=== PATIENT | female | born 1995 | race Caucasian/White ===

== ENCOUNTER 2017-02-25 15:49 | Inpatient (IN) | payer MEDICAID ==
[~2017-02-25] VITALS: Ht 162.6 cm; Wt 72.7 kg
[2017-02-25 16:05] VITALS: BP 119/73; PULSE 90; RESP 18
--- NOTE | 2017-02-25 16:15 | RADRPT ---
PROCEDURE: US OB. CLINICAL INDICATION: Size and dates , leaking fluid TECHNIQUE: Multiple sonographic images of the pelvis and gravid uterus were obtained. The images were reviewed on a PACS workstation. COMPARISON: No prior studies are available for comparison. FINDINGS: There is a single viable intrauterine gestation. Cardiac activity is present with 146 beats per min ashtyn. There is a vertex presentation. The placenta is anterior. There is no evidence for an abruption or placenta previa. Measurements were made in order to determine age. The results are as follows: BPD =9.2 cm HC =31.7 cm AC =34 cm FL =7.4 cm Estimated gestational age of approximately 37 weeks and 1 day based on ultrasound measurements. Clinical age: 35 weeks and 3 days. The estimated date of delivery is 03/17/17, based on ultrasound measurements. The EFW = 3248 g, 94.9%, based on LMP age. RPTAT: AA IMPRESSION: Single viable intrauterine gestation of approximately 37 weeks and 1 day based on ultrasound measur ements. .Tim Jimenez MD, MD Date Time Electronically viewed and signed by .Tim Jimenez MD, on 02/25/2017 16:15 .S/
--- NOTE | 2017-02-25 16:21 | RADRPT ---
PROCEDURE: US OB biophysical profile. CLINICAL INDICATION: decreased movements, leaking fluid TECHNIQUE: Multiple sonographic images of the pelvis were obtained. The images were reviewed on a PACS workstation. COMPARISON: No prior studies are available for comparison. FINDINGS: There is a single viable intrauterine gestation. Cardiac activity is present with 146 beats per ale te. There is a vertex presentation. The placenta is anterior. There is no evidence for an abruption or placenta previa. The ADARSH measures 5.9 cm. Biophysical profile: movement 2/2 tone 2/2. breathing 2/2 ADARSH 2/2 Total 11/30 RPTAT: AA . IMPRESSION: Normal biophysical profile. Mild oligohydramnios. . .Tim Jimenez MD, Date Time Electronically viewed and signed by .Tim Jimenez MD, MD on 02/25/2017 16:20 .S/
[2017-02-25] MEDS ORDERED: OXYTOCIN 30 UNITS/LR 500 ML IV SCH ×5 (18:00→23:00)
[2017-02-25] MEDS ORDERED: OXYTOCIN 30 UNITS/LR 500 ML IV PRN (18:00)
[2017-02-25] MEDS ORDERED: HYDROCODONE/APAP (5/325) TAB PO PRN (18:00)
[2017-02-25] MEDS ORDERED: OXYCODONE/ASPIRIN (4.88/325) TAB PO PRN (18:00)
[2017-02-25] MEDS ORDERED: AMPICILLIN 2 GM/NS (PMX) 100 ML IV ONE (18:00)
[2017-02-25] MEDS ORDERED: MISOPROSTOL 200 MCG TAB PR PRN (18:00)
[2017-02-25] MEDS ORDERED: OXYCODONE/ACETAMINOPHEN (5/325) TAB PO PRN (18:00)
[2017-02-25] MEDS ORDERED: METHYLERGONOVINE 0.2 MG INJ IM PRN (18:00)
[2017-02-25] MEDS ORDERED: IBUPROFEN 600 MG TAB PO PRN (18:00)
[2017-02-25] MEDS ORDERED: CARBOPROST 250 MCG INJ IM PRN (18:00)
[2017-02-25] MEDS ORDERED: LIDOCAINE 1% (MPF) 30 ML INJ INJ PRN (18:00)
[2017-02-25] MEDS ORDERED: AMPICILLIN 2 GM/NS (PMX) 100 ML ONE (18:06)
[2017-02-25] MEDS: LACTATED RINGER'S 1,000 ML IV SCH ×2 (18:46→23:10)
--- NOTE | 2017-02-25 18:49 | HP ---
Date/Time of Note Date/Time of Note DATE: 02/25/17 TIME: 18:48 OB - History Hx of Present Free Text/Dictation 35+wks PPROM : 2 Para: 0 Care: Good Care Ultrasounds: Normal mid trimester US Obstetrical Complications: None Medical Complications: None Past Family/Social History * Past Medical, Surgical, Family and Obstetric Histories reviewed from chart. OB Admission Exam Vital Signs Vital Signs Vital Signs Date Time Temp Pulse Resp B/P Pulse Ox O2 Delivery O2 Flow Rate FiO2 02/25/17 16:05 98.5 90 18 119/73 98 Room Air Physical Exam Abdomen: WNL Extremities: Normal Effacement: 50% Station: -1 Membranes: Ruptured Amniotic Fluid: Clear Heart Rate: 140's Accelerations: Accelerations Present Varibility: Moderate OB Assessment/Plan Reason for admission: observation Plan: Expectant Management Other plan: Antibiotics Steroids Close Observation LESLYE PENA M.D. Feb 25, 2017 18:49
[2017-02-25] MEDS ORDERED: BETAMET NA PHOS/AC(6 MG/ML) 5ML INJ IM SCH (19:00)
[2017-02-25] MEDS ORDERED: PREN1COM10 PO (19:04)
--- NOTE | 2017-02-25 19:54 | TRIAGE ---
OB Triage Datetime Report Generated by CPN: 02/25/2017 19:53 Datetime: 02/25/2017 19:50 Labor Evaluation Frequency: 5-10 Monitor Mode: External Duration (sec)2399: 40-70 Quality: Mild Pattern: Normal: <= 5 Contractions in 10 Minutes Resting Tone [place]: Relaxed Heart Rate FHR Baseline Rate: 130 Monitor Mode: External US FHR Baseline Changes: No Baseline Change Variability: Moderate 6-25 bpm Accelerations: 15X15 Decelerations: None Category: Category I Datetime: 02/25/2017 19:49 Membrane Status: Ruptured Datetime: 02/25/2017 16:27 Vaginal Exam Dilatation (cms): 1.0 Effacement (%): 50 Station: -3 Exam By: emily rivera rn Cervix, Consistency: Moderate Cervix, Position: Posterior Presentation 'A': Cephalic Datetime: 02/25/2017 15:58 Assessment Type: Admission Assessment Maternal Assessment Level of Consciousness: Fully Conscious DTR's/Clonus: DTRs 2+; No Clonus Headache: Denies Blurred Vision: No Respiratory Effort: Unlabored; Regular Rhythm; Equal Expansion Breath Sounds, Left: Clear and Equal Breath Sounds, Right: Clear and Equal Nausea/Vomiting: Denies RUQ Epigastric Pain: Denies Facial Edema: None Fall Risk Assessment History of Falling: (0) No Secondary Diagnosis: (0) No Ambulatory Aid: (0) Bedrest/Nurse Assist IV Therapy: (0) No Gait: (0) Normal/Bedrest/Immobile Mental Status: (0) Oriented to Own Ability Fall Score: 0 Fall Risk Score Definition: No Risk: No action required Datetime: 02/25/2017 15:56 Time of Arrival: 02/25/2017 16:40 EGA: 35.3 Arrived By: Ambulance Arrived From: Other Hospital Chief Complaint: SROM 1500 Movement: Present Contractions: Irregular Rupture of Membranes: Ruptured Vaginal Bleeding: None Vaginal Discharge: Denies Recent Sexual Intercouse: Denies Abdominal Trauma: Not Applicable Patient Complaints: Contractions; Other Time Provider Notified: 02/25/2017 17:30 Provider Notified: md dotty Initial Plan: rom plus , efw, bpp, christiano
[2017-02-25] MEDS: AMPICILLIN 1 GM/NS (PMX) 50 ML IV SCH (22:44)
[2017-02-25] MEDS ORDERED: BUTORPHANOL 2 MG INJ IV PRN ×2 (23:00)
[2017-02-26] MEDS: AMPICILLIN 1 GM/NS (PMX) 50 ML IV SCH ×2 (01:57→05:47)
[2017-02-26] MEDS ORDERED: FENTAnyl 2MCG/ML-ROPIV 0.2% 100 ML ONE (02:17)
[2017-02-26 03:10] VITALS: Ht 162.6 cm; Wt 72.7 kg
[2017-02-26] MEDS: LACTATED RINGER'S 1,000 ML IV* SCH ×2 (06:54→14:54)
[2017-02-26] MEDS ORDERED: OXYTOCIN 30 UNITS/LR 500 ML IV SCH (06:54)
[2017-02-26] MEDS ORDERED: MISOPROSTOL 200 MCG TAB PR PRN (07:00)
[2017-02-26] MEDS ORDERED: CARBOPROST 250 MCG INJ IM PRN (07:00)
[2017-02-26] MEDS ORDERED: HYDROCODONE/APAP (5/325) TAB PO PRN (07:00)
[2017-02-26] MEDS ORDERED: OXYTOCIN 30 UNITS/LR 500 ML IV PRN (07:00)
[2017-02-26] MEDS ORDERED: METHYLERGONOVINE 0.2 MG INJ IM PRN (07:00)
[2017-02-26] MEDS ORDERED: LANOLIN 7 GM TUBE TOP PRN (07:00)
[2017-02-26] MEDS ORDERED: BENZOCAINE 20% 56 ML SPRAY TOP PRN (07:00)
--- NOTE | 2017-02-26 07:08 | LDN ---
Date/Time of Note Date/Time of Note DATE: 02/26/17 TIME: 06:58 Delivery Summary of a viable baby weighing 3185 grams or 7#, 19" long, and with Apgars of 9/ 9. Weeks of Gestation 35w 4d Placenta Delivered: Manually Meconium: none Episiotomy: No Perineal laceration: 0 Laceration repair: First degree right labial laceration repaired with 2-0 chromic, Anesthesia type: Epidural Estimated blood loss: 400 Sponge & Needle done & correct: Yes All needle counts correct: Yes Any foreign bodies felt in the: No (vagina) Problems: Delivery Information Sex Sex: male Apgars 1 Minute: 9 5 Minute: 9 Suctioning Nose & mouth suctioned at isacc: Yes Delee suction performed: No Umbilical Cord Umbilical cord with: 3 Vessels Cord presentations: no nuchal cord Cord Blood was obtained: Yes Mother & Baby Disposition Disposition Mom & Baby to Maternity; Good: Yes Baby to NICU: No MARS MARTINEZ MD Feb 26, 2017 07:08
[2017-02-26 10:00] VITALS: BP 114/67; PULSE 108; RESP 18
[2017-02-26] MEDS: IBUPROFEN 600 MG TAB PO SCH ×2 (11:48→17:31)
[2017-02-26 12:30] VITALS: BP 109/62; PULSE 108; RESP 17
[2017-02-26 16:00] VITALS: BP 100/59; PULSE 102; RESP 18
[2017-02-26 19:35] VITALS: BP 105/64; PULSE 96; RESP 8
[2017-02-27] VITALS: BP_SYST 103; BP_SYST 99; BP_DIAS 55; BP_DIAS 75; PULSE 78; PULSE 96; RESP 16; RESP 18
[2017-02-27] MEDS: IBUPROFEN 600 MG TAB PO SCH ×5 (00:16→23:36)
[2017-02-27 04:25] VITALS: BP 97/52; PULSE 88; RESP 18
[2017-02-27 08:00] VITALS: BP 106/63; PULSE 95; RESP 20
[2017-02-27 12:05] VITALS: BP 107/51; PULSE 65; RESP 18
[2017-02-27 20:00] VITALS: BP 91/61; PULSE 86; RESP 18
[2017-02-28 04:00] VITALS: BP 100/72; PULSE 79; RESP 18
[2017-02-28] MEDS: IBUPROFEN 600 MG TAB PO SCH ×2 (06:35→12:15)
[2017-02-28 07:45] VITALS: BP 98/62; PULSE 83; RESP 18
[2017-02-28] MEDS ORDERED: DIPHTH/TET/ACEL PERTUSS (ADULT) 0.5 ML VIAL IM* ONE (09:00)
--- NOTE | 2017-02-28 14:12 | DS ---
Date/Time of Note Date/Time of Note DATE: 02/28/17 TIME: 14:11 Obstetrical Discharge Record Final Diagnosis Final Diagnosis: Term delivered Vaginal Delivery Obstetrical Delivery: Spontaneous Condition on Discharge Physical Assessment Voiding: Yes Bowel Movement: Yes Breast: Soft, non-tender Fundus: Firm Calf Tenderness: No Patient Condition: Stable BELLA TORO MD Feb 28, 2017 14:11
== END 2017-02-28 19:30 | disposition home or self-care (01) | DRG 775 ==
LOC: OBT 15:49 → L-D 15:50 → OBT 17:30 → L-D 22:22 → PP1 02-26 10:00
PROVIDERS: ADMIT Obstetrics & Gynecology; ATTEND Obstetrics & Gynecology
PROC: 4A1HXCZ Monitoring of Products of Conception, Cardiac Rate, External Approach (ICD-10-PCS; 2017-02-25)
PROC: 10E0XZZ Delivery of Products of Conception, External Approach (ICD-10-PCS; principal; 2017-02-26)
PROC: 0HQ9XZZ Repair Perineum Skin, External Approach (ICD-10-PCS; 2017-02-26)
DX: O42.913 Preterm premature rupture of membranes, unspecified as to length of time between rupture and onset of labor, third trimester (principal); O70.0 First degree perineal laceration during delivery; Z37.0 Single live birth; Z3A.35 35 weeks gestation of pregnancy
CPT/HCPCS: 62319; 76815; 76818; 80053; 80076; 80307; 81003; 84112; 85025; 85610; 85730; 86592; 86762; 86850; 86900; 86901; 87086; 87340; 90715; 99464; G0463; J0290; J0595; J2210; J2590; J3010; J7120

== ENCOUNTER 2017-03-16 14:56 | Emergency (ER) | payer MEDICAID ==
[~2017-03-16] VITALS: Ht 160 cm; Wt 62.0 kg
[~2017-03-16 14:56] MED LIST: PREN1COM10 PO
[2017-03-16 15:00] VITALS: Ht 160 cm; Wt 62.0 kg
[2017-03-16] MEDS ORDERED: KETOROLAC 30 MG INJ IV STA (15:27)
[2017-03-16] MEDS ORDERED: ONDANSETRON 4 MG INJ IV STA (15:27)
[2017-03-16] MEDS ORDERED: SOD CHLORIDE 0.9% 1,000 ML IV STA ×2 (15:27→15:32)
[2017-03-16] MEDS ORDERED: CEFTRIAXONE 1 GM/50 ML (PMX) 50 ML IVPB STA (15:32)
[2017-03-16 16:19] LABS: BASOPHILS % 0.2 % (0.0-2.0); EOSINOPHILS # 1.4 10^3/ul (0.0-0.5); EOSINOPHILS % 11.3 % (0.0-7.0); HEMATOCRIT 38.3 % (37.0-47.0); HEMOGLOBIN 13.2 g/dl (12.0-16.0); LYMPHOCYTES # 2.8 10^3/ul (0.8-2.9); LYMPHOCYTES % 23.4 % (15.0-51.0); MEAN CORPUSCULAR HGB CONC 34.5 g/dl (32.0-37.0); MEAN PLATELET VOLUME 10.2 fl (7.4-10.4); MONOCYTE # 0.5 10^3/ul (0.3-0.9); MONOCYTES % 4.3 % (0.0-11.0); NEUTROPHIL # 7.3 10^3/ul (1.6-7.5); NEUTROPHILS % 60.5 % (39.0-77.0); PLATELET COUNT 343 10^3/UL (140-415); WHITE BLOOD COUNT 12.1 10^3/ul (4.8-10.8)
[2017-03-16] MEDS ORDERED: ACETAMINOPHEN 500 MG TAB PO STA (16:22)
--- NOTE | 2017-03-16 16:22 | ERD ---
ER Documentation Chief Complaint Chief Complaint pelvic pain, headache and fever since last night, vag delivery 02/26/17 HPI 21-year-old female had a vaginal delivery on February 26 comes to emergency department with pelvic pain, fever and headache beginning last night. Patient describes achy pain that goes from her suprapubic region to her right lower back and flank region, associated with a frontal headache that is achy and fever. She took Tylenol this morning. She has not had any vaginal bleeding, vaginal discharge. This was her second , she has a history of one other that resulted in miscarriage. ROS All systems reviewed and are negative except as per history of present illness. Medications Home Meds Active Scripts Ibuprofen* (Motrin*) 600 Mg Tab, 600 MG PO Q6, #30 TAB Prov:VÍCTOR FELDMAN PA-C 03/16/17 Doxycycline Hyclate* (Doxycycline Hyclate*) 100 Mg Tablet.dr, 100 MG PO BID for 10 Days, TAB Prov:VÍCTOR FELDMAN PA-C 03/16/17 Cephalexin* (Keflex*) 500 Mg Capsule, 500 MG PO TID for 10 Days, CAP Prov:VÍCTOR FELDMAN PA-C 03/16/17 Reported Medications Cmb#95/Iron/Fa/Dha ( + DHA COMBO PACK) 1 Each Combo..pkg, 1 EACH PO 02/25/17 Allergies Allergies: Coded Allergies: No Known Allergy (Unverified , 02/25/17) PMhx/Soc Medical and Surgical Hx: pt denies Medical Hx, pt denies Surgical Hx Hx Alcohol Use: No Hx Substance Use: No Hx Tobacco Use: No Physical Exam Vitals Vital Signs Date Time Temp Pulse Resp B/P Pulse Ox O2 Delivery O2 Flow Rate FiO2 03/16/17 15:00 100.3 113 20 120/74 97 Physical Exam General: Well-appearing, no acute distress, nontoxic. HEENT: Head is normocephalic, atraumatic. No scleral icterus. Neck: Supple. Nontender. Lungs: Clear to auscultation. Normal air movement. Heart: Regular rate and rhythm. S1 and S2 are normal. No murmurs, gallops, or rubs. Abdomen: Soft, suprapubic tenderness, there is no rebound or guarding, negative Yepez sign, no McBurney tenderness, no peritoneal signs, no masses nondistended. Bowel sounds are normoactive. Extremities: No clubbing or cyanosis. Normal pulses. Moving extremities x 4. No weakness. Neurologic: Alert and oriented 3. No focal deficits. Skin: Normal turgor. No rash or lesions. Result Diagram: 03/16/17 1540 Results 24 hrs Laboratory Tests Test 03/16/17 15:30 03/16/17 15:40 03/16/17 15:55 Urine Color YELLOW Urine Clarity CLEAR Urine pH 5.0 Urine Specific Baldwin 1.024 Urine Ketones NEGATIVEmg/dL Urine Nitrite NEGATIVEmg/dL Urine Bilirubin NEGATIVEmg/dL Urine Urobilinogen 1+mg/dL Urine Leukocyte Esterase 2+Ankita/ul Urine Microscopic RBC 3/HPF Urine Microscopic WBC 10/HPF Urine Squamous Epithelial Cells FEW/HPF Urine Hemoglobin 2+mg/dL Urine Glucose NEGATIVEmg/dL Urine Total Protein NEGATIVEmg/dl White Blood Count 12.110^3/ul Red Blood Count 4.4010^6/ul Hemoglobin 13.2g/dl Hematocrit 38.3% Mean Corpuscular Volume 87.0fl Mean Corpuscular Hemoglobin 30.0pg Mean Corpuscular Hemoglobin Concent 34.5g/dl Red Cell Distribution Width 12.0% Platelet Count 38072^3/UL Mean Platelet Volume 10.2fl Neutrophils % 60.5% Lymphocytes % 23.4% Monocytes % 4.3% Eosinophils % 11.3% Basophils % 0.2% Nucleated Red Blood Cells % 0.0/100WBC Neutrophils # 7.310^3/ul Lymphocytes # 2.810^3/ul Monocytes # 0.510^3/ul Eosinophils # 1.410^3/ul Basophils # 0.010^3/ul Nucleated Red Blood Cells # 0.010^3/ul Prothrombin Time 13.5Sec Prothrombin Time Ratio 1.1 INR International Normalized Ratio 1.03 Activated Partial Thromboplast Time 31.6Sec Lactic Acid Level 1.0mmol/L Troponin I < 0.012ng/ml Serum HCG, Qualitative NEGATIVE Current Medications Medications (Trade) Dose Ordered Sig/Domingo Route PRN Reason Start Time Stop Time Status Last Admin Dose Admin Sodium Chloride (NS) 1,000 ml @ 1,000 mls/hr Q1H STAT IV 03/16/17 15:27 03/16/17 16:26 DC 03/16/17 16:07 Ondansetron HCl (Zofran Inj) 4 mg ONCE STAT IV 03/16/17 15:27 03/16/17 15:31 DC 03/16/17 16:07 Ketorolac Tromethamine 30 mg 30 mg ONCE STAT IV 03/16/17 15:27 03/16/17 15:31 DC 03/16/17 16:07 Ceftriaxone Sodium 50 ml @ 100 mls/hr ONCE STAT IVPB 03/16/17 15:32 03/16/17 16:05 DC 03/16/17 16:07 Sodium Chloride (NS) 1,000 ml @ 1,000 mls/hr Q1H STAT IV 03/16/17 15:32 03/16/17 16:31 DC 03/16/17 16:07 Acetaminophen (Tylenol Tab) 500 mg ONCE STAT PO 03/16/17 16:22 03/16/17 16:23 DC 03/16/17 16:26 Doxycycline Hyclate (Vibramycin) 100 mg ONCE ONCE PO 03/16/17 17:00 03/16/17 17:01 12-lead EKG(interpreted by supervising physician): Reviewed by Dr. Blue Rate/Rhythm: Normal Sinus Rhythm, rate of 71 QRS, ST, T-waves: No changes consistent w/ acute ischemia, no intervals, no dysrhythmias, no ectopy Impression: No evidence of ischemia or arrhythmia DIAGNOSTIC IMAGING REPORT Patient: ROSANNA RODRIGUEZ : 1995 Age: 21 Sex: F MR #: [id number] DOS: 03/16/17 1532 Ordering MD: DEBORAH WALKER MD Location: [facility] Room/Bed: PROCEDURE: XR Chest. CLINICAL INDICATION: Dyspnea. TECHNIQUE: XR CHEST PA COMPARISON: None available. FINDINGS: The lungs are clear. No focal opacification is seen. No pneumothorax or pleural effusion is seen. The cardiomediastinal silhouette is unremarkable. The osseous structures are grossly unremarkable. IMPRESSION: No evidence of acute cardiopulmonary disease. RPTAT: JJ .Raleigh Cortes MD, MD Date Time Electronically viewed and signed by .Raleigh Cortes MD, MD on 03/16/2017 16:52 .A/ CC: DEBORAH WALKER MD DIAGNOSTIC IMAGING REPORT Patient: ROSANNA RODRIGUEZ : 1995 Age: 21 Sex: F MR #: [id number] DOS: 03/16/17 1527 Ordering MD: VÍCTOR FELDMAN PA-C Location: [facility] Room/Bed: PROCEDURE: US Pelvis. CLINICAL INDICATION: Pelvic pain. . Delivery on 02/26/2017. TECHNIQUE: The pelvis was evaluated with transabdominal and transvaginal sonography in the axial and sagittal planes. COMPARISON: No prior study is available for comparison. FINDINGS: Uterus: 9.2 x 5.1 x 8.2 cm. Endometrium: 4.2 mm. A small region of heterogeneity is present in the endometrium adjacent to the cervix measuring 2 mm. Right ovary: 2.3 x 1.6 x 1.7 cm. Left ovary: 3.6 x 2.3 x 2.6 cm. Uterine masses: None. Ovarian masses: None. Color Doppler and pulsed Doppler sonography demonstrate normal flow to the ovaries. Other pelvic masses: None. Free fluid: None. IMPRESSION: 1. Small region of heterogeneity in the endometrium adjacent to the cervix measuring 2 mm. 2. Otherwise unremarkable pelvic ultrasound. RPTAT: QQ .Bridger Avendaño MD, MD Date Time Electronically viewed and signed by .Bridger Avendaño MD, MD on 03/16/2017 16:38 .R/ CC: VÍCTOR FELDMAN PA-C Procedures/[facility] ED course: Patient had IV line established, blood and urine were obtained. She was started on Rocephin 1 g IV normal saline 1 L IV. The patient was given doxycycline 100 mg p.o. Medical decision makin-year-old female comes with suprapubic abdominal pain after vaginal delivery, differential diagnosis includes endometritis, UTI, intra-abdominal abscess. Evidence of an abscess, retained products. Patient's clinical diagnosis will be endometritis given her history of , fever and pelvic pain. She also has leukocyte esterase that is present with white blood cells in her urine analysis and will be treated for UTI. She will be given doxycycline to go home as well as Keflex for coverage. She is to recheck with her doctor in 1-2 days. She had an elevated white blood cell count at 12 pounds, however her lactic acid is normal, patient is not in sepsis. Departure Diagnosis: Primary Impression: Endometritis Additional Impression: UTI (urinary tract infection) Condition: VÍCTOR Gomes PA-C Mar 16, 2017 16:22
[2017-03-16 16:30] LABS: ADD UMIC YES; UR ASCORBIC ACID NEGATIVE (NEGATIVE); UR BILIRUBIN (Dip) NEGATIVE (NEGATIVE); UR BLOOD (Dip) 2+ mg/dL (NEGATIVE); UR CLARITY CLEAR (CLEAR); UR COLOR YELLOW (YELLOW); UR GLUCOSE (Dip) NEGATIVE (NEGATIVE); UR KETONES (Dip) NEGATIVE (NEGATIVE); UR LEUKOCYTE ESTERASE (Dip) 2+ Leu/ul (NEGATIVE); UR NITRITE (Dip) NEGATIVE (NEGATIVE); UR RBC 3 /HPF (0-5); UR SPECIFIC GRAVITY (Dip) 1.024 (1.003-1.030); UR SQUAMOUS EPITHELIAL CELL FEW /HPF (FEW); UR TOTAL PROTEIN (Dip) NEGATIVE (NEGATIVE); UR UROBILINOGEN (Dip) 1+ mg/dL (NEGATIVE)
[2017-03-16 16:35] LABS: INR 1.03; PROTIME 13.5 Sec (12.2-14.2); PT RATIO 1.1
[2017-03-16 16:36] LABS: PARTIAL THROMBOPLASTIN TIME 31.6 Sec (25.0-35.0)
--- NOTE | 2017-03-16 16:38 | RADRPT ---
PROCEDURE: US Pelvis. CLINICAL INDICATION: Pelvic pain. . Delivery on 02/26/2017. TECHNIQUE: The pelvis was evaluated with transabdominal and transvaginal sonography in the axial a nd sagittal planes. COMPARISON: No prior study is available for comparison. FINDINGS: Uterus: 9.2 x 5.1 x 8.2 cm. Endometrium: 4.2 mm. A small region of heterogeneity is present in the endometrium adjacent to the c ervix measuring 2 mm. Right ovary: 2.3 x 1.6 x 1.7 cm. Left ovary: 3.6 x 2.3 x 2.6 cm. Uterine masses: None. Ovarian masses: None. Color Doppler and pulsed Doppler sonography demonstrate normal flow to the ova ana laura. Other pelvic masses: None. Free fluid: None. IMPRESSION: 1. Small region of heterogeneity in the endometrium adjacent to the cervix measuring 2 mm. 2. Otherwise unremarkable pelvic ultrasound. RPTAT: QQ .Bridger Avendaño MD, MD Date Time Electronically viewed and signed by .Bridger Avendaño MD, on 03/16/2017 16:38 .R/
--- NOTE | 2017-03-16 16:52 | RADRPT ---
PROCEDURE: XR Chest. CLINICAL INDICATION: Dyspnea. TECHNIQUE: XR CHEST PA COMPARISON: None available. FINDINGS: The lungs are clear. No focal opacification is seen. No pneumothorax or pleural effusion is seen. The cardiomediastinal silhouette is unremarkable. The osseous structures are grossly unremarkable. IMPRESSION: No evidence of acute cardiopulmonary disease. RPTAT: JJ .Raleigh Cortes MD, MD Date Time Electronically viewed and signed by .Raleigh Cortes MD, on 03/16/2017 16:52 .A/
[2017-03-16] MEDS ORDERED: IBUP-1542 PO (16:54)
[2017-03-16] MEDS ORDERED: DOXY100T20 PO (16:54)
[2017-03-16] MEDS ORDERED: CEPH-443 PO (16:54)
[2017-03-16] MEDS ORDERED: DOXYCYCLINE 100 MG TAB PO ONE (17:00)
[2017-03-16 17:43] VITALS: BP 118/68; PULSE 70; RESP 16; TEMP 98.5
[2017-03-16 17:44] LABS: ALBUMIN 4.5 g/dl (3.3-4.9); ALBUMIN/GLOBULIN RATIO 1.28; BILIRUBIN,INDIRECT 0.2 mg/dl (0-1.1); BILIRUBIN,TOTAL 0.2 mg/dl (0.2-1.3); CALCIUM 9.6 mg/dl (8.4-10.2); CREATININE 0.77 mg/dl (0.44-1.00); POTASSIUM 3.4 mmol/L (3.5-5.1)
== END 2017-03-16 17:44 | disposition home or self-care (01) ==
LOC: FTE 14:56
DX: N71.9 Inflammatory disease of uterus, unspecified (principal); N39.0 Urinary tract infection, site not specified
CPT/HCPCS: 36415; 71010; 76830; 76856; 80053; 81001; 83605; 83690; 84484; 84703; 85025; 85610; 85730; 87040; 87086; 96374; 96375; J0696; J1885; J2405; J7030; Z7502; Z7610

== ENCOUNTER 2018-10-20 07:58 | Inpatient (IN) | payer MEDICAID ==
[~2018-10-20] VITALS: Ht 157.5 cm; Wt 78.3 kg
[~2018-10-20 07:58] MED LIST changes: +CEPH-443 PO; +DOXY100T20 PO; +IBUP-1542 PO
[2018-10-20 08:52] VITALS: Ht 157.5 cm; Wt 78.3 kg
[2018-10-20 08:53] VITALS: BP 113/71; PULSE 84; RESP 18
[2018-10-20] MEDS ORDERED: MISOPROSTOL 200 MCG TAB PR PRN (09:30)
[2018-10-20] MEDS ORDERED: BUTORPHANOL 2 MG INJ IV PRN ×2 (09:30)
[2018-10-20] MEDS ORDERED: OXYTOCIN 30 UNITS/LR 500 ML IV PRN (09:30)
[2018-10-20] MEDS ORDERED: LIDOCAINE 1% (MPF) 30 ML INJ INJ PRN (09:30)
[2018-10-20] MEDS ORDERED: AMPICILLIN 2 GM/NS (PMX) 100 ML IV ONE (09:30)
[2018-10-20] MEDS ORDERED: METHYLERGONOVINE 0.2 MG INJ IM PRN (09:30)
[2018-10-20] MEDS ORDERED: CARBOPROST 250 MCG INJ IM PRN (09:30)
[2018-10-20] MEDS ORDERED: OXYTOCIN 30 UNITS/LR 500 ML IV SCH ×3 (09:30→12:00)
[2018-10-20] MEDS: LACTATED RINGER'S 1,000 ML IV SCH ×4 (09:43→22:48)
[2018-10-20] MEDS ORDERED: LACTATED RINGER'S 1,000 ML IV PRN (10:22)
[2018-10-20] MEDS ORDERED: MINERAL OIL LIGHT 10 ML VIAL TOP PRN (10:30)
[2018-10-20] MEDS ORDERED: AMPICILLIN 1 GM/NS (PMX) 50 ML IV SCH (13:30)
--- NOTE | 2018-10-20 16:13 | HP ---
Date/Time of Note Date/Time of Note DATE: 10/20/18 TIME: 16:06 OB - History Hx of Present Free Text/Dictation 23y.o here at triage with c/o U/C q 6-7min apart with intact membrane, at 39week Initial VE 3/80/-2 CAT I tracing no record is available. admitted for expectant management. Chief Complaint: uc's Estimated Due Date: Oct 27, 2018 : 3 Para: 1 Spontaneous : 1 Therapeutic : 0 Care: Other Ultrasounds: Other Obstetrical Complications: None Medical Complications: None Past Family/Social History * Past Medical, Surgical, Family and Obstetric Histories reviewed from chart. Blood Type: O+ Rubella: immune RPR/VDRL: Negative GBS Status: Negative HBsAG: Negative OB Admission Exam Vital Signs Vital Signs Vital Signs Date Temp Pulse Resp B/P (MAP) Pulse Ox O2 O2 Flow FiO2 Time Delivery Rate 10/20/18 97.9 84 18 113/71 08:53 (85) Physical Exam HEENT: WNL Heart: Rhythm Normal Lungs: Clear, Equal Abdomen: WNL Extremities: Normal Reflexes: Normal Cervical Dilatation: 3cm Effacement: 75% Station: -2 Membranes: Intact Amniotic Fluid: Unevaluable Heart Rate: 130's Accelerations: Accelerations Present Decelerations: No Decelerations Varibility: Moderate Contractions on Admission: 6-10 Minutes Apart Intensity: Mild Last 72 hours Lab Results CBC & BMP 10/20/18 09:48 OB Assessment/Plan Reason for admission: active labor Other Assessment: IUP 39w Plan: Expectant Management, Other (augmentation) LIAM CLEMONS MD Oct 20, 2018 16:13
[2018-10-20] MEDS ORDERED: ACETAMINOPHEN 325 MG TAB PO ONE (19:00)
--- NOTE | 2018-10-20 22:16 | PREAC ---
Date/Time of Note Date/Time of Note DATE: 10/20/18 TIME: 22:14 Anesthesia Eval and Record Evaluation Time Pre-Procedure Interview DATE: 10/20/18 TIME: 22:14 Age 23 Sex female NPO: 8 hrs Preoperative diagnosis labor pain Planned procedure epidural Past Medical History Past Medical History: None Surgery & Anesthesia Issues No known issue Meds Anticoagulation: No Beta Michael within 24 hr: No Reason Beta Michael not given: Pt. not on B-Michael Active Scripts Ibuprofen* (Motrin*) 600 Mg Tab, 600 MG PO Q6, #30 TAB Prov:VÍCTOR FELDMAN PA-C 03/16/17 Doxycycline Hyclate* (Doxycycline Hyclate*) 100 Mg Tablet.dr, 100 MG PO BID for 10 Days, TAB Prov:VÍCTOR FELDMAN PA-C 03/16/17 Cephalexin* (Keflex*) 500 Mg Capsule, 500 MG PO TID for 10 Days, CAP Prov:VÍCTOR FELDMAN PA-C 03/16/17 Reported Medications Cmb#95/Iron/Fa/Dha ( + DHA COMBO PACK) 1 Each Combo..pkg, 1 EACH PO 02/25/17 Current Medications Lactated Ringer's 1,000 ml @ 125 mls/hr Q8H IV Last administered on 10/20/18at 21:57; Admin Dose 125 MLS/HR; Start 10/20/18 at 09:20 Butorphanol Tartrate (Stadol) 1 mg Q2H PRN IV .PAIN SCALE 1-5; Start 10/20/18 at 09:30 Butorphanol Tartrate (Stadol) 2 mg Q2H PRN IV .PAIN SCALE 6-10; Start 10/20/18 at 09:30 Lidocaine (Xylocaine 1% (Mpf)) 30 ml ONCE PRN INJ .EPISIOTOMY; Start 10/20/18 at 09:30 Oxytocin/Lactated Ringer's 500 ml @ 500 mls/hr ONCE POST IV ; Start 10/20/18 at 09:30 Oxytocin/Lactated Ringer's 500 ml @ 125 mls/hr POST IV ; Start 10/20/18 at 09:30 Oxytocin/Lactated Ringer's 500 ml @ 0 mls/hr ONCE PRN IV .VAGINAL BLEEDING; Start 10/20/18 at 09:30 Methylergonovine Maleate (Methergine) 0.2 mg ONCE PRN IM .VAGINAL BLEEDING; Start 10/20/18 at 09:30 Carboprost Tromethamine (Hemabate) 250 mcg ONCE PRN IM .VAGINAL BLEEDING; Start 10/20/18 at 09:30 Misoprostol (Cytotec) 1,000 mcg ONCE PRN DC .VAGINAL BLEEDING; Start 10/20/18 at 09:30 Lactated Ringer's 1,000 ml @ 2,000 mls/hr Q30M PRN IV .ANESTHESIA; Start 10/20/18 at 10:22 Mineral Oil (Muri-Lube) ONCE PRN TOP NOTE; Start 10/20/18 at 10:30 Oxytocin/Lactated Ringer's 500 ml @ 0 mls/hr Q0M IV Last administered on 10/20/18at 11:54; Admin Dose 1 MLS/HR; Start 10/20/18 at 12:00 Meds reviewed: Yes Allergies Coded Allergies: No Known Allergy (Unverified , 02/25/17) Allergies Reviewed: Yes Labs/Studies Labs Reviewed: Reviewed by anesthesiologist Result Diagram: 10/20/1848 Laboratory Tests 10/20/18 09:48 Blood Bank Test 10/20/18 09:48 Antibody Screen NEGATIVE Blood Type O POSITIVE Rh Immune Globulin Candidate NO test: N/A Pre-procedure Exam Last vitals Vital Signs Date Temp Pulse Resp B/P (MAP) Pulse Ox O2 O2 Flow FiO2 Time Delivery Rate 10/20/18 97.9 84 18 113/71 08:53 (85) Airway: Adequate mouth opening, Adequate thyromental dist Mallampati: Mallampati II Teeth: Normal Lung: Normal Heart: Normal ASA Physical Status ASA physical status: 2 Emergency: None Pre-operative Attestations Prior to commencing anesthesia and surgery, the patient was re-evaluated, there was verification of: *The patient's identity *The results of appropriate recent lab work and preoperative vital signs *The above evaluation not changing prior to induction *Anesthetic plan, risk benefits, alternative and complications discussed with patient/family; questions answered; patient/family understands, accepts and wishes to proceed. MADDY ELLISON DO Oct 20, 2018 22:16
[2018-10-20] MEDS ORDERED: FENTAnyl 2MCG/ML-ROPIV 0.2% 100 ML BAG EPI SCH (22:30)
[2018-10-20] MEDS ORDERED: NALOXONE (0.4 MG/ML) INJ IV PRN (22:30)
[2018-10-20] MEDS ORDERED: FENTAnyl 50 MCG/ML VIAL ONE (22:42)
--- NOTE | 2018-10-21 04:25 | LDN ---
Date/Time of Note Date/Time of Note DATE: 10/21/18 TIME: 04:23 Delivery Summary of normal male Weeks of Gestation 39w Placenta Delivered: Spontaneously Meconium: none Episiotomy: No Perineal laceration: 0 Anesthesia type: Epidural Estimated blood loss: 300 Sponge & Needle done & correct: Yes All needle counts correct: Yes Any foreign bodies felt in the: No Infant Delivery Information Sex Infant Sex: male Apgars 1 Minute: 9 5 Minute: 9 Suctioning Nose & mouth suctioned at isacc: Yes Delee suction performed: Yes Umbilical Cord Umbilical cord with: 3 Vessels Cord presentations: no nuchal cord Cord Blood was obtained: Yes Mother & Baby Disposition Disposition Mom & Baby to Maternity; Good: Yes Mom transferred to: Other Baby to NICU: No () LIAM CLEMONS MD Oct 21, 2018 04:25
[2018-10-21 04:40] VITALS: BP 124/70; PULSE 78; RESP 18
[2018-10-21] MEDS ORDERED: OXYCODONE/ASPIRIN (4.88/325) TAB PO PRN (05:00)
[2018-10-21] MEDS ORDERED: OXYTOCIN 30 UNITS/LR 500 ML IV PRN (05:00)
[2018-10-21] MEDS ORDERED: ZOLPIDEM 5 MG TAB PO PRN (05:00)
[2018-10-21] MEDS ORDERED: MISOPROSTOL 200 MCG TAB PR PRN (05:00)
[2018-10-21] MEDS ORDERED: WITCH HAZEL/GLYCERIN PAD PR PRN (05:00)
[2018-10-21] MEDS ORDERED: BENZOCAINE 20% 56 ML SPRAY TOP PRN (05:00)
[2018-10-21] MEDS ORDERED: CARBOPROST 250 MCG INJ IM PRN (05:00)
[2018-10-21] MEDS ORDERED: LANOLIN HPA 1 PKT TOP PRN (05:00)
[2018-10-21] MEDS ORDERED: METHYLERGONOVINE 0.2 MG INJ IM PRN (05:00)
[2018-10-21] MEDS: IBUPROFEN 600 MG TAB PO SCH ×4 (05:32→23:51)
[2018-10-21 05:40] VITALS: BP 118/71; PULSE 82; RESP 18
[2018-10-21] MEDS: OXYCODONE/ASPIRIN (4.88/325) TAB PO PRN (06:18)
--- NOTE | 2018-10-21 06:26 | PAC ---
Date/Time of Note Date/Time of Note DATE: 10/21/18 TIME: 06:26 Post-Anesthesia Notes Post-Anesthesia Note Last documented vital signs Vital Signs Date Temp Pulse Resp B/P (MAP) Pulse Ox O2 O2 Flow FiO2 Time Delivery Rate 10/21/18 98.5 82 18 118/71 Room Air 05:40 (87) Activity: WNL Respiratory function: WNL Cardiovascular function: WNL Mental status: Baseline Pain reasonably controlled: Yes Hydration appropriate: Yes Nausea/Vomiting absent: Yes MADDY ELLISON DO Oct 21, 2018 06:26
[2018-10-21 08:00] VITALS: BP_SYST 112; BP_SYST 117; BP_DIAS 60; BP_DIAS 77; PULSE 73; PULSE 80; RESP 18
[2018-10-21] MEDS: SENNA/DOCUSATE NA (8.6MG/50MG) TAB PO SCH ×2 (10:07→21:41)
[2018-10-21 15:35] VITALS: BP 95/53; PULSE 80; RESP 16
[2018-10-21 20:00] VITALS: BP 94/59; PULSE 86; RESP 18
[2018-10-22] MEDS: OXYCODONE/ASPIRIN (4.88/325) TAB PO PRN ×2 (00:36→21:21)
[2018-10-22 03:48] VITALS: BP 109/72; PULSE 75; RESP 18
[2018-10-22] MEDS: IBUPROFEN 600 MG TAB PO SCH ×4 (05:40→23:34)
[2018-10-22 08:45] VITALS: BP 111/66; PULSE 75; RESP 18
[2018-10-22] MEDS: SENNA/DOCUSATE NA (8.6MG/50MG) TAB PO SCH ×2 (09:00→21:20)
--- NOTE | 2018-10-22 11:49 | QN ---
Documentation Comment PPD#1 is stable afebrile +BM +voids No VB VS stable Gen NAD Abd soft NT ND Genitalia no blood at perineum --->Discharge plan tomorrow LESLYE PENA M.D. Oct 22, 2018 11:49
[2018-10-22 16:10] VITALS: BP 110/74; PULSE 78; RESP 17
[2018-10-22 20:00] VITALS: BP 114/64; PULSE 80; RESP 18
[2018-10-23 03:59] VITALS: BP 99/60; PULSE 75; RESP 18
[2018-10-23] MEDS: IBUPROFEN 600 MG TAB PO SCH ×2 (05:45→11:07)
[2018-10-23 08:00] VITALS: BP 120/69; PULSE 83; RESP 18
[2018-10-23] MEDS ORDERED: DIPHTH/TET/ACEL PERTUSS (ADULT) 0.5 ML VIAL IM* ONE (09:00)
[2018-10-23] MEDS ORDERED: FERROUS SULFATE (EC) 325 MG TAB PO SCH (09:30)
--- NOTE | 2018-10-23 10:13 | DS ---
Date/Time of Note Date/Time of Note DATE: 10/23/18 TIME: 10:12 Obstetrical Discharge Record Final Diagnosis Final Diagnosis: Term delivered Condition on Discharge Physical Assessment Patient Condition: Good MILESTONE,ALEX WALSH Oct 23, 2018 10:13
--- NOTE | 2018-10-23 10:28 | DS ---
Date/Time of Note Date/Time of Note DATE: 10/23/18 TIME: 10:26 Obstetrical Discharge Record Final Diagnosis Final Diagnosis: Term delivered Other Final Diagnosis Subjective: 23-year-old G3, P2 day #2 from a vaginal delivery at term. Complaints of blurry vision and headache frontally located for 2 days. Denies any right upper quadrant pain. General pain is out of 10 in severity. Patient taking Motrin for pain relief. Is feeding. Ambulating. Vaginal bleeding within normal limits. Voiding. Objective: Vital signs within normal limits. H/H 10.4/30.1. General: No apparent distress. Breast: Normal. Fundus 2 fingerbreadths below the umbilicus. Extremities nontender to palpation. Blood Type: O+ Rubella: immune RPR/VDRL: Negative GBS Status: Negative HBsAG: Negative Assessment/plan: 1. DLE-65-zywu-old -0-1-1 presented at 39 weeks with active labor. She was admitted to the hospital. Her hospital course was uncomplicated. She delivered male infant weighing 3840 g with Apgars 9 and 9 vaginally on 10/21/2018 at 2:38 AM. Patient to be discharged home day #2 in stable condition with follow up in 6 weeks. 2. Headache/blurry visionAST/ALT/LDH ordered prior to discharge. 3. Acute blood lossH/H stable. Vitals stable. Ferrous sulfate. Complications Augmentation: Yes Condition on Discharge Physical Assessment Patient Condition: Good MILESTONE,ALEX WALSH Oct 23, 2018 10:28
[2018-10-23] MEDS: SENNA/DOCUSATE NA (8.6MG/50MG) TAB PO SCH (11:07)
[2018-10-23] MEDS ORDERED: FER325 PO (12:40)
[2018-10-23] MEDS ORDERED: Lanolin Hpa TOP (12:40)
[2018-10-23] MEDS ORDERED: SENOKOTS PO (12:40)
[2018-10-23] MEDS ORDERED: IBUP-1542 PO (12:40)
--- NOTE | 2018-10-23 14:29 | DS ---
Date/Time of Note Date/Time of Note DATE: 10/23/18 TIME: 12:40 Obstetrical Discharge Record Final Diagnosis Final Diagnosis: Term delivered Condition on Discharge Physical Assessment Patient Condition: Stable MILESTONEALEX MD Oct 23, 2018 14:29
--- NOTE | 2018-10-24 14:39 | DELSUM ---
Delivery Summary A-C Datetime Report Generated by CPN: 10/24/2018 14:39 DELIVERY PERSONNEL Career Guidance Technician: CYDNEY ROSARIOE MATERNAL INFORMATION Delivery Anesthesia: Epidural Medications in Delivery: pitocin Delivery QBL (ml): 300 Placenta Cultured: No Maternal Complications: Other Other Maternal Complications: limitted care LABOR SUMMARY EDC: 10/27/2018 00:00 No. Babies in Womb: 1 Attempted: No Labor Anesthesia: Epidural LABOR INFORMATION Reason for Induction: Not Applicable Onset of Labor: 10/20/2018 03:00 Complete Dilatation: 10/21/2018 02:02 Oxytocin: Augmentation Group B Beta Strep: Negative Antibiotics # of Doses: 0 Steroids Given: None Reason Steroids Not Administered: Not Applicable MEMBRANES Membranes Rupture Method: Artificial Rupture of Membranes: 10/21/2018 02:08 Length of Rupture (hr): 0.50 Amniotic Fluid Color: Clear Amniotic Fluid Amount: Moderate Amniotic Fluid Odor: None STAGES OF LABOR Stage 1 hr: 23 Stage 1 min: 2 Stage 2 hr: 0 Stage 2 min: 36 Stage 3 hr: 0 Stage 3 min: 2 Total Time in Labor hr: 23 Total Time in Labor min: 40 VAGINAL DELIVERY Episiotomy: None Laceration Extension: N/A Laceration Type: None Laceration Repair: Not Applicable Initial Vag Sponge Count: 10 Final Vag Sponge Count: 10 Initial Vag Sharps Count: 1 Final Vag Sharps Count: 1 Sponge Count Correct: Yes; Vaginal Sweep Performed Sharps Count Correct: Yes BABY A INFORMATION Delivery Date/Time: 10/21/2018 02:38 Method of Delivery: Vaginal Born in Route : No : N/A Forceps: N/A Vacuum Extraction: N/A Shoulder Dystocia : No SHOULDER DYSTOCIA BABY A Infant Delivery Date/Time: 10/21/2018 02:38 PRESENTATION/POSITION BABY A Presentation: Cephalic Cephalic Presentation: Vertex Vertex Position: Left Occipital Anterior Breech Presentation: N/A PLACENTA INFORMATION BABY A Placenta Delivery Time : 10/21/2018 02:40 Placenta Method of Delivery: Spontaneous Placenta Status: Delivered SCORES BABY A Heart Rate 1 min: >100 bpm Resp Effort 1 min: Good Cry Reflex Irritability 1 min: Cough/Sneeze/Pulls Away Muscle Tone 1 min: Active Motion Color 1 min: Body [place], Extremit Blue Resuscitation Effort 1 min: Tactile Stimulation SCORE 1 MIN: 9 Heart Rate 5 min: >100 bpm Resp Effort 5 min: Good Cry Reflex Irritability 5 min: Cough/Sneeze/Pulls Away Muscle Tone 5 min: Active Motion Color 5 min: Body [place], Extremit Blue Resuscitation Effort 5 min: Tactile Stimulation SCORE 5 MIN: 9 INFORMATION BABY A Gestational Age at Delivery: 39.1 Gestational Status: Full Term- 39- 40.6 Weeks Infant Outcome : Liveborn, with signs of life Infant Condition : Stable Sex: Male IDENTIFICATION/MEDS BABY A ID Band Number: [id number] ID Band Location: Right Leg; Left Arm Sensor Applied: Yes Sensor Number: [id number] Sensor Location : Cord Clamp Vitamin K Given : Not Given Erythromycin Given: Not Given WEIGHT/LENGTH BABY A Birthweight (gm): 3840 Weight (lb): 8 Infant Weight (oz): 7 Length (in): 20.00 Infant Length (cm): 50.80 CORD INFORMATION BABY A No. Cord Vessels: 3 Nuchal Cord : N/A Cord Blood Taken: No Infant Suction: Mouth; Nose ASSESSMENT BABY A Infant Complications: None Physical Findings at Delivery: Within Normal Limits Infant Respirations: Appears Normal Wardrobe Custodian/ALS Called : No Care By: Eugenia Alcazar Transferred To: Remains with Mother
== END 2018-10-23 14:10 | disposition home or self-care (01) | DRG 807 ==
LOC: OBT 07:58 → L-D 08:00 → OBT 09:31 → L-D 09:34 → PP1 10-21 04:43
PROVIDERS: ADMIT Obstetrics & Gynecology; ATTEND Obstetrics & Gynecology
PROC: 10E0XZZ Delivery of Products of Conception, External Approach (ICD-10-PCS; principal; 2018-10-21)
DX: O80 Encounter for full-term uncomplicated delivery (principal); Z37.0 Single live birth; Z3A.39 39 weeks gestation of pregnancy
CPT/HCPCS: 62322; 80307; 83615; 84450; 84460; 85025; 85610; 85730; 86592; 86850; 86900; 86901; 87340; 90715; 99464; G0463; J2210; J2590; J3010; J7120